=== PATIENT | male | born 1970 | race African-American/Black ===

== ENCOUNTER 2017-03-22 20:39 | Emergency (ER) | payer OTHER ==
--- NOTE | ~2017-03-22 | CR195 ---
[facility] A Service of [facility] / [facility] RADIOLOGY TEXT RESULTS PATIENT: SHAHRIAR SANCHEZ LOCATION: [facility] : [birth year] UNIT #: [id number] AGE: [address]: Guanakito Friend MD SEX: M ORDER DR: [id number] [facility] [address] [place], [place] [address] [id number] E MR#: [id number] #: [id number] NAME: SHAHRIAR SANCHEZ : 1970 SEX: M STUDY DATE/TIME: 03/22/2017 19:55 UNIT: [facility] ROOM: STUDY DESCRIPTION: CR Neck Soft Tissue Attending Physician: Jaun Friend M.D. Ordering Physician: Ed Doctor [id number] [facility] Primary Care Physician: [facility] MEDICAL IMAGING REPORT This report is preliminary unless electronic signature is present EXAM Soft tissue neck AP and lateral 2 views HISTORY Sore throat and cough for 3 days FINDINGS Normal. Dictated by... Christofer Tate M.D. THIS IS AN ELECTRONICALLY VERIFIED REPORT Christofer Tate M.D. at 03/24/2017 9:42 AM CARLYN/jared TD: 03/22/2017 23:34 JOB #: [id number] MEDICAL IMAGING REPORT Page 1 of 1 COPY
--- NOTE | ~2017-03-22 | CR63 ---
[facility] A Service of [facility] & [facility] RADIOLOGY TEXT RESULTS PATIENT: SHAHRIAR SANCHEZ LOCATION: [facility] : [birth year] UNIT #: [id number] AGE: [address]: Guanakito Friend MD SEX: M ORDER DR: [id number] [facility] [address] [facility] [place], [place] [address] [id number] E MR#: [id number] Acc #: [id number] NAME: SHAHRIAR SANCHEZ : 1970 SEX: M STUDY DATE/TIME: 03/22/2017 19:55 UNIT: [facility] ROOM: STUDY DESCRIPTION: CR Chest 2 View Attending Physician: Jaun Friend M.D. Ordering Physician: Ed Philippe Garcia M.D. Primary Care Physician: [facility] MEDICAL IMAGING REPORT This report is preliminary unless electronic signature is present EXAM PA and lateral chest, 2 views 03/22/2017 COMPARISON 01/16/2015 CLINICAL HISTORY 3-day history of cough, congestion, sore throat. FINDINGS PA and lateral examination of the chest upright shows a good expansion of the parenchyma with a normal distribution of the pulmonary vascularity. There is no indication of congestion, effusion, infiltrate, tumor, or nodular density. The pleural reflections and diaphragmatic contours are normal. The cardiac silhouette and mediastinal anatomy is within normal limits. IMPRESSION Normal chest. Dictated by... Christofer Tate M.D. THIS IS AN ELECTRONICALLY VERIFIED REPORT Christofer Tate M.D. at 03/24/2017 9:42 AM TEV/psc TD: 03/22/2017 23:45 JOB #: [id number] MEDICAL IMAGING REPORT Page 1 of 1 COPY
[~2017-03-22 20:39] MED LIST: BACTRIM DS TABL1 TA1 PO; BLOOD PRESSURE PILL; FLEXERIL PO; KEFLEX500 MG PO; MEDROL PO; PEN-VEE K PO; PERMETHRIN1 GM TOP; VICODIN 5/1 TAB 5/50 PO; VICODIN 5/500 T1 TAB PO
== END 2017-03-22 21:45 | disposition home or self-care (01) ==
LOC: CED 20:39
DX: T78.3XXA Angioneurotic edema, initial encounter (principal); T46.4X5A Adverse effect of angiotensin-converting-enzyme inhibitors, initial encounter; I10 Essential (primary) hypertension; F17.210 Nicotine dependence, cigarettes, uncomplicated
CPT/HCPCS: 70360; 71020; 96374; 96375; 99284; J1200; J2930